=== PATIENT | female | born 1960 ===

== ENCOUNTER → 2020-12-24 | Outpatient (CLI) | payer BC ==
[2020-12-24 07:53] VITALS: BP 121/74; PULSE 68; RESP 16; TEMP 98.3
--- NOTE | 2020-12-24 08:48 | P.GSHP ---
History of Present Illness H&P Date: 12/24/20 Chief Complaint: invasive lobular cancer Kaylan is a 60 year old white female seen in consultation for DR. Roth regarding an invasive left breast lobular cancer. She had a left breast digital screening mammogram performed on . This revealed an asymmetric area of density at the retroareolar region measuring 1.6 cm. She subsequently underwent a diagnostic left breast mammogram on . This revealed persistent retroareolar density for which an ultrasound was recommended this was performed on the same date. This revealed a 1.7 cm irregular lesion in the retroareolar region at 2:00. She subsequently underwent an ultrasound-guided core biopsy which revealed an invasive lobular carcinoma. This was grade 2 ER/[place] positive and HER-2 negative. She felt anything in her breast. She gets mammograms on an annual basis. 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 Her treatment was in [facility]. She underwent chemotherapy and radiation therapy. She was placed on raloxifene for approximately 5 years. This was at the age of 37. She underwent a mastectomy with reconstruction via TRAM flap. The implant was placed on the left side for symmetry. She moved to [place] she followed with medical oncology, Dr. Bahena. She has not had any genetic testing done. Patient states she does not have any nipple discharge or skin changes. After the diagnosis she is able to feel the area of nodularity. It is not changed since she felt it. Caffeine: coffee and iced tea during the day Nicotine: 1/PPD chocolate: occasional Family History: mother: breast cancer at 85 Hormonal History: menarche: 12 M1, breast fed: yes, age at first : 22 menopause: 49 BCP: 5 years Surgical History: 1. Right mastectomy/axillary node dissection/reconstruction/symmetry procedure with the implant placed on the left side 2. attempted latismus dorsi flap which failed 3. right foot surgery 4. tonsil Medical History: anxiety/depression Social History: Smokin/2 PPD since 15smoke alcohol: none drugs: none - Constitutional Constitutional: Denies chills, Denies fever - EENT Comment: flashes and floaters both eyes Ears: deny: decreased hearing, tinnitus Ears, nose, mouth and throat: Denies headache, Denies sore throat - Breasts Breasts: bilateral: as per HPI - Cardiovascular Cardiovascular: Denies chest pain, Denies shortness of breath - Respiratory Comment: smoker - Gastrointestinal Gastrointestinal: Denies abdominal pain, Denies diarrhea, Denies nausea, Denies vomiting - Genitourinary (Female) Genitourinary: Denies dysuria, Denies hematuria - Menstruation Menstruation: Reports postmenopausal - Musculoskeletal Comment: back pain/scoliosis osteoarthritis - Integumentary Integumentary: Denies pruritus, Denies rash - Neurological Neurological: Denies numbness, Denies weakness - Psychiatric Psychiatric: Reports anxiety, Reports depression - Endocrine Endocrine: Denies fatigue, Denies weight change - Hematologic/Lymphatic Comment: none - Allergic/Immunologic Allergic/Immunologic: Reports seasonal allergies Past Medical History Past Medical History: Cancer Additional Past Medical History / Comment(s): hx. breast cancer-1997, had chemo & radiation History of Any Multi-Drug Resistant Organisms: None Reported Past Surgical History: Breast Surgery, Orthopedic Surgery, Tonsillectomy Additional Past Surgical History / Comment(s): right mastectomy & rec onstruction, foot surg. Past Anesthesia/Blood Transfusion Reactions: No Reported Reaction Past Alcohol Use History: None Reported Past Drug Use History: None Reported Medications and Allergies Home Medications Medication Instructions Recorded Confirmed Type PARoxetine [Paxil] 10 mg PO QAM 10/05/14 12/24/20 History [place]-3 Fatty Acids/Fish Oil [Fish 1 each PO QAM 12/24/20 12/24/20 History Oil 1,000 mg Softgel] Allergies Allergy/AdvReac Type Severity Reaction Status Date / Time No Known Allergies Allergy Verified 12/24/20 07:28 Surgical - Exam BMI 26.6 - General well developed, well nourished, no distress - Eyes normal ocular movement - ENT no hearing loss, no congestion - Neck no masses, trachea midline - Respiratory normal expansion, normal respiratory effort, clear to auscultation - Cardiovascular Rhythm: regular Heart Sounds: normal: S1, S2 - Abdomen Abdomen: soft, bowel sounds - Integumentary normal turgor - Neurologic no disoriented, no combative - Musculoskeletal normal gait - Psychiatric oriented to time, oriented to person, oriented to place, speech is normal, memory intact breast exam: BRA: 38C inspection: Asymmetry of the breast related to prior surgery, tram flap reconstruction of the right side, implant placement left side with removal of the nipple areolar complex and reimplantation. Palpation: Right breast: Tram flap reconstruction right chest wall no evidence of recurrent cancer Right axilla: No adenopathy of concern Left breast: Scars related to prior implant placement and repositioning of the nipple areolar complex, mass at 2 o'clock position extending from 12 to 2:00 approximately 2 cm in size Left axilla: No adenopathy of concern Results awaiting the actual radiographs from [facility], review of mammogram reports and ultrasound report Assessment and Plan Assessment: Impression: 1. Left breast invasive lobular carcinoma 2. Prior right mastectomy with TRAM flap reconstruction 23 years ago stage III disease 3. Anxiety/depression 4. Nicotine dependence 5. Back pain Plan: 1. Left breast needle localization lumpectomy, possible oculoplastic tissue transfer, sentinel node injection, sentinel node biopsy, possible axillary node dissection 2. Presentation of case at tumor board 3. Thoracic and lumbar spine x-rays Surgical options were discussed with the patient. The patient has a stage I A left breast invasive lobular carcinoma . Options include mastectomy plus or minus removal of implant, lumpectomy, sentinel node biopsy, possible axillary node dissection. She would like to have a lumpectomy performed if possible. We've also discussed genetic testing and at this time she is not interested. At this time the patient would like to have implant retained as possible. Additionally she is going to have the nipple areolar complex removed secondary to the proximity of the tumor to this, and is not going to have any reconstruction of this at this time. Cc: Dr. Roth Encounter 45 minutes time spent in physical examination, reviewing medical records, and counseling.
== END ==
LOC: WWCWWP 07:16
PROVIDERS: ATTEND Surgery
DX: C50.912 Malignant neoplasm of unspecified site of left female breast (principal); Z80.3 Family history of malignant neoplasm of breast; F32.9 Major depressive disorder, single episode, unspecified; F41.9 Anxiety disorder, unspecified; F17.210 Nicotine dependence, cigarettes, uncomplicated; M54.9 Dorsalgia, unspecified

== ENCOUNTER → 2020-12-24 | Outpatient (CLI) | payer BC ==
--- NOTE | 2020-12-24 09:26 | XR ---
EXAMINATION TYPE: XR thoracic spine complete DATE OF EXAM: 12/24/2020 COMPARISON: None HISTORY: Scoliosis back pain TECHNIQUE: 3 view thoracic spine FINDINGS: There are 12 thoracic type vertebral bodies. Pedicles are intact. There is a mild scoliosis present with convexity to the right. Vertebral body heights are preserved. Disc heights are preserve d. Sagittal plane alignment appears normal. IMPRESSION: 1. Mild thoracic scoliosis
--- NOTE | 2020-12-24 09:28 | XR ---
EXAMINATION TYPE: XR lumbar spine 2 or 3V DATE OF EXAM: 12/24/2020 COMPARISON: None HISTORY: Scoliosis, low back pain TECHNIQUE: 3 view lumbar spine FINDINGS: There is no scoliosis present within the lumbar spine. There are 5 lumbar-type vertebral humble dies. The pedicles appear intact as visualized. There is loss of disc height L5-S1 with some vacuum disc phenomenon. Posterior disc space narrowing i s present L4-5 disc space narrowing L1-2 and L2-3 may be present. Vertebral body heights are preserve d. IMPRESSION: 1. S shaped scoliosis to the lumbar spine. 2. Degenerative disc changes with loss of disc height discussed above
== END ==
LOC: RADXRMAIN 08:52
PROVIDERS: ATTEND Surgery
DX: M41.86 Other forms of scoliosis, lumbar region (principal); M51.36 Other intervertebral disc degeneration, lumbar region; M41.34 Thoracogenic scoliosis, thoracic region
CPT/HCPCS: 72072; 72100

== ENCOUNTER 2021-01-18 10:15 | Day surgery (SDC) | payer BC ==
[2021-01-13 15:47] VITALS: BMI 26.6
[~2021-01-18 10:15] MED LIST: DEXAMETHASONE SOD PHOSPHATE 4 MG/ML 1 ML VIAL IV ONE; HEPARIN SODIUM,PORCINE/PF 5,000 UNIT/0.5 ML SYRINGE SQ PRN; HYDROmorphone 0.5 MG/0.5 ML SYRINGE IVP PRN; LACTATED RINGERS 1,000 ML IV SCH; LIDOCAINE 1% (10MG/ML) FOR IV START INTRADERMA PRN; MIDAZOLAM 2 MG/2 ML VIAL IV PRN; ONDANSETRON 4 MG/2 ML VIAL IVP ONE; Pre Op ABX Message 1 EACH MISC MISCELLANE ONE
[2021-01-18] MEDS ORDERED: ALPRAZolam 0.25 MG TAB ONE (10:54)
[2021-01-18] MEDS ORDERED: ALPRAZolam 0.25 MG TAB PO ONE (10:56)
[2021-01-18 11:00] VITALS: RESP 16
[2021-01-18] MEDS ORDERED: LIDOCAINE 1% INJ 10MG/ML (20 ML MDV) SQ ONE (11:54)
--- NOTE | 2021-01-18 12:09 | P.NAPBC ---
NAPBC Queries - NAPBC Queries Was patient's case review presented at [facility] tumor board? If no, comment.: Yes Was patient's pathology reviewed at [facility]? If no, comment.: Yes Was breast conservation surgery offered? If no, comment.: Yes Was sentinel node biopsy offered? If no, comment.: Yes Was diagnosis confirmed by percutaneous core biopsy? If no, comment.: Yes Is patient mastectomy patient?: No Was a preop referral to reconstructive surgeon offered?: Yes Clinical Stage: Stage IA
--- NOTE | 2021-01-18 12:29 | NM ---
EXAMINATION TYPE: NM sentinel node injection DATE OF EXAM: 01/18/2021 COMPARISON: Mammogram 12/08/2020 HISTORY: 60-year-old female C50.512 MALIGNANT NEOPLASM OF UPPER-OUTER QUADRANT TECHNIQUE AND FINDINGS: The procedure of sentinel lymph node injection was explained to the patient. The benefits, alternatives, and risks were discussed. An informed consent was then obtained. Overlying skin is cleaned with sterile alcohol. Following this, 514 uCi Tc99m Tilmanocept was inject ed in the upper outer aspect of the left nipple intradermally. The patient tolerated the procedure well without any immediate complication. The patient was kept in the radiology department for short stay after the procedure and then taken to surgery for surgical p rocedure what is presumed intraoperative gamma probe will be used for sentinel lymph node detection. IMPRESSION: Successful left breast radiotracer injection for sentinel node localization as above.
[2021-01-18] MEDS ORDERED: ePHEDrine SULFATE/0.9% NACL/PF 50 MG/5 ML SYRINGE IV ONE (12:41)
[2021-01-18] MEDS ORDERED: SODIUM CHLORIDE 0.9% 100 ML BAG ONE (12:41)
[2021-01-18] MEDS ORDERED: ONDANSETRON 4 MG/2 ML VIAL ONE (12:41)
[2021-01-18] MEDS ORDERED: PROPOFOL 10 MG/ML 20 ML VIAL IV ONE (12:41)
[2021-01-18] MEDS ORDERED: SUCCINYLCHOLINE CHLORIDE 100 MG/5 ML SYR IV ONE (12:41)
[2021-01-18] MEDS ORDERED: MIDAZOLAM 2 MG/2 ML VIAL ONE (12:41)
[2021-01-18] MEDS ORDERED: fentaNYL (PF) 50 MCG/ML 2 ML AMP ONE (12:41)
[2021-01-18] MEDS ORDERED: WATER FOR INJECTION, STERILE 10 ML VIAL IV ONE (12:41)
[2021-01-18] MEDS ORDERED: ceFAZolin 1,000 MG VIAL ONE (12:41)
[2021-01-18] MEDS ORDERED: LIDOCAINE 1% INJ 10MG/ML (20 ML MDV) ONE (12:41)
[2021-01-18] MEDS ORDERED: SODIUM CHLORIDE 0.9% 50 ML with ceFAZolin 2,000 MG IV ONE ×2 (12:44)
[2021-01-18] MEDS ORDERED: LACTATED RINGERS 1,000 ML IV ONE (14:24)
--- NOTE | 2021-01-18 14:50 | P.OP ---
Date of Procedure: 01/18/21 Preoperative Diagnosis: Left breast invasive lobular carcinoma Postoperative Diagnosis: Same Procedure(s) Performed: [place] node biopsy, central lumpectomy after needle localization Anesthesia: VANIA Surgeon: Roseann Byrd Estimated Blood Loss (ml): 10 IV fluids (ml): 600 Pathology: other ([place] node, left breast tissue) Condition: stable Disposition: same day Indications for Procedure: Left breast invasive lobular carcinoma Operative Findings: Dense breast tissue Description of Procedure: Kaylan is a 60-year-old white female who was diagnosed with a left breast invasive lobular carcinoma posterior to the nipple areolar complex. She had a prior right breast cancer and has had a left breast subpectoral implant to augment her left breast and make it more symmetrical to the right side. The right side was reconstructed with a TRAM flap. The patient declined genetic testing at this time. She wished a lumpectomy she understood that a central lumpectomy would be performed with removal of the nipple areolar complex. The patient was seen in the radiology department. Needle localization was performed, and radioactive substance was injected for sentinel node biopsy. She was brought to the operative suite and following induction of anesthesia the axilla was interrogated using the neoprobe. Radioactivity was identified. The left breast and axilla were then prepped and draped in a sterile fashion. An incision was made in the axilla over the area of greatest radioactivity. Dissection was carried into the deep tissues and a radioactive lymph node was identified. This was removed using the Harmonic scalpel. The 10 second count was 2665. The background count was at 10 seconds was 16. No other radioactive lymph nodes were identified. No other palpable nodes were identified. The axillary area was well irrigated. The deep tissues were closed using 3-0 Vicryl suture. The skin was closed using 4-0 Monocryl. Steristrips were placed. The area of the breast was approached. Circumareolar incision was performed with excision of the skin and aeorolar tissue, the wire as followed down to the area of concern. Posteriorly dissection was performed close to the area of the subpectoral implant. Anteriorly the skin and nipple areolar complex were removed. Superior and inferior no palpable lesion was identified and likewise no palpable lesion was identified medial or lateral. The specimen was removed. It was painted for orientation. Radiograph was performed and the area of concern was present in the specimen. The deep tissues were closed using 3-0 Vicryl suture. The subcutaneous tissue was closed using 3-0 Vicryl suture. The skin was closed using 4-0 Monocryl. This was followed by 4-0 nylon suture. Patient tolerated the procedure in stable condition. All instrument and sponge counts were correct at the end of the case.
--- NOTE | 2021-01-18 14:52 | P.DS ---
Providers Attending physician: Roseann Byrd Primary care physician: Michelle Roth Plan - Discharge Summary Discharge Rx Participant: No New Discharge Prescriptions: No Action PARoxetine [Paxil] 10 mg PO HS [place]-3 Fatty Acids/Fish Oil [Fish Oil 1,000 mg Softgel] 1 each PO QAM Ibuprofen [Motrin] 800 mg PO Q8H PRN PRN Reason: Pain Discharge Medication List PARoxetine [Paxil] 10 mg PO HS 10/05/14 [History] [place]-3 Fatty Acids/Fish Oil [Fish Oil 1,000 mg Softgel] 1 each PO QAM 12/24/20 [History] Ibuprofen [Motrin] 800 mg PO Q8H PRN 01/13/21 [History] Follow up Appointment(s)/Referral(s): Roseann Byrd MD [STAFF PHYSICIAN] - 1 Week Activity/Diet/Wound Care/Special Instructions: do not drive for 24 hours after d/c or if taking narcotic pain medication may shower after 48 hours wear bra at all times Discharge Disposition: HOME SELF-CARE
[2021-01-18 15:06] VITALS: TEMP 96.9
[2021-01-18] MEDS ORDERED: KETOROLAC 15 MG/ML 1 ML VIAL IVP ONE (15:15)
[2021-01-18 16:00] VITALS: PULSE 68
[2021-01-18 16:24] VITALS: BP 148/74
--- NOTE | 2021-01-18 16:38 | MM ---
EXAMINATION TYPE: MG pre op needle loc LT, MG surgical specimen LT DATE OF EXAM: 01/18/2021 COMPARISON: 12/08/2020 CLINICAL HISTORY: 60-year-old female C5 0.512. Biopsy-proven left breast cancer. Referred for needle localization. TECHNIQUE: Needle localization with wire placement and surgical excision of area of concern in the anterior subareolar left breast. FINDINGS: The procedure of needle localization with wire placement and than surgical excision was explained to the patient. Benefits, alternatives, and risks were discussed. An informed consent was then obtained. The shortest pathway for procedure was chosen. Shortest pathway was a superior approach. The overlying skin was prepped and draped in usual sterile fashion. Lidocaine was used as anesthetic into the skin and subcutaneous tissue up to the level of area of concern. A 7 cm needle was used. It was placed via a superior approach under mammographic guidance. Subsequent 90 degrees mammogram show the needle to be in satisfactory position relative to the targeted area. At this point, wire was placed and the needle was withdrawn. The wire was fixed to patient's skin. Images were marked for surgeon. The patient tolerated the procedure well without any immediate complication. The patient was kept in the radiology department for short stay after the procedure and then taken to surgery for surgical excision. Targeted clip and associated focal asymmetry and wire are identified in specimen mammogram. The patient was kept in hospital for short stay after the procedure and then discharged home in stable condition. IMPRESSION: Successful, uncomplicated needle localization with wire placement and surgical excision of biopsy-proven left breast cancer. Full pathology results to follow. Pathology Results: Malignant A. AXILLARY CONTENTS, LEFT: Single lymph node negative for metastasis. CK7 and PHILIPP immunoperoxidase stains are confirmatory (controls appropriate). B. SENTINEL LYMPH NODE, LEFT: Two lymph nodes, one node positive for micrometastasis and one node positive for isolated tumor cells. CK7 and PHILIPP immunoperoxidase stains are confirmatory (controls appropriate). See Surgical Pathology Cancer Case Summary. C. LEFT BREAST, LUMPECTOMY: Invasive lobular carcinoma involving the medial and cauterized uninked margins multifocally. See Surgical Pathology Cancer Case Summary and Comment. Recommendation Surgical consult of the left breast. Appropriate surgical/oncologic management for any positive margins. MTDD
== END 2021-01-18 16:42 | disposition home or self-care (01) ==
LOC: OR 10:15
PROVIDERS: ATTEND Surgery
DX: C50.912 Malignant neoplasm of unspecified site of left female breast (principal); C77.3 Secondary and unspecified malignant neoplasm of axilla and upper limb lymph nodes; Z17.0 Estrogen receptor positive status [ER+]; Z85.3 Personal history of malignant neoplasm of breast; Z80.3 Family history of malignant neoplasm of breast; F17.210 Nicotine dependence, cigarettes, uncomplicated; F41.9 Anxiety disorder, unspecified; F32.9 Major depressive disorder, single episode, unspecified; M19.90 Unspecified osteoarthritis, unspecified site; Z79.899 Other long term (current) drug therapy
CPT/HCPCS: 19301; 38525; 88342; 88307; 88341; 76098; 19281; 38792; A9520; J2250; J1100; J2405; J0690; J2001; J3010; J1885; J0330; J2704; J1790; J1644

== ENCOUNTER → 2021-01-27 | Outpatient (CLI) | payer BC ==
[2021-01-27 12:09] VITALS: BP 147/88; PULSE 74; RESP 18; TEMP 98.1
--- NOTE | 2021-01-27 12:43 | P.PN ---
Progress Note - Text Progress Note Date: 01/27/21 Kaylan is a 60-year-old white female status post left breast central lumpectomy and sentinel node biopsy [place] [id number]. This was for an invasive lobular carcinoma. Pathology revealed the lesion to be 2.2 cm in size. The medial margin was positive. Additionally 2 lymph nodes revealed disease 1 be micrometastatic and when showing isolated tumor cells. The patient post procedure is doing well. Secondary to the positive margin is necessary for have at least reexcision of the medial margin. After discussion she wishes a mastectomy to be performed with reconstruction to be done at the same time. She has had a left breast subpectoral implant in the past and there is question as to whether this should be replaced. The patient will also have an axillary node dissection she understands this. Risks and benefits the procedure were discussed with the patient. Risks include but are not limited to bleeding, infection, reaction to the anesthetic. Additionally she understands that the reconstruction will ultimately be up to the plastic surgeon she is going to see a plastic surgeon prior to the procedure. We made over not remove the implant at the time of surgery but this will be after discussion with plastic surgery. Physial Exam: lungs: clear heart: RRR incision: clean and dry Plan: 1. left breast mastectomy and axillary node dissection 2. Possible removal of implant left side and replacement as per plastic surgery appointment with plastic surgery CC: DR. Roth
== END | disposition home or self-care (01) ==
LOC: WWCWWP 11:49
PROVIDERS: ATTEND Surgery
DX: C50.912 Malignant neoplasm of unspecified site of left female breast (principal)

== ENCOUNTER → 2021-02-03 | Outpatient (CLI) | payer BC ==
[2021-02-03 07:46] VITALS: BP 110/63; PULSE 64; RESP 16; TEMP 98.1
--- NOTE | 2021-02-03 08:05 | P.PN ---
Progress Note - Text Progress Note Date: 02/03/21 Kaylan is a 60-year-old white female status post left breast central lumpectomy and sentinel node biopsy and [id number]. This was for an invasive lobular carcinoma. Pathology revealed the lesion to be 2.2 cm in size. The medial margin was positive. Additionally 2 lymph nodes revealed disease 1 be micrometastatic and when showing isolated tumor cells. The patient post procedure is doing well. Secondary to the positive margin is necessary for have at least reexcision of the medial margin. After discussion she wishes a mastectomy to be performed with reconstruction to be done at the same time. She has had a left breast subpectoral implant in the past and there is question as to whether this should be replaced. The patient will also have an axillary node dissection she understands this. Risks and benefits the procedure were discussed with the patient. Risks include but are not limited to bleeding, infection, reaction to the anesthetic. Additionally she understands that the reconstruction will ultimately be up to the plastic surgeon she is going to see a plastic surgeon prior to the procedure. We may or may not remove the implant at the time of surgery but this will be after discussion with plastic surgery. Kaylan has seen Dr. Villavicencio from plastic surgery. He has discussed with her reconstruction options. This may or may not include an v groove cutter placement versus immediate implant placement. She understands this and wishes to proceed with the surgery. Physial Exam: lungs: clear heart: RRR incision: clean and dry; sutures removed and Steri-Strips applied Plan: 1. left breast mastectomy and axillary node dissection 2. Possible removal of implant left side and replacement as per plastic surgery CC: DR. Roth
== END ==
LOC: WWCWWP 07:29
PROVIDERS: ATTEND Surgery
DX: Z48.02 Encounter for removal of sutures (principal)

== ENCOUNTER 2021-02-08 06:53 | Observation (INO) | payer BC ==
[2021-02-04 14:37] VITALS: BMI 26.6
--- NOTE | 2021-02-04 17:19 | P.PN ---
Subjective Progress Note Date: 02/04/21 Principal diagnosis: Positive margin left breast lumpectomy Kaylan is a 60 year old white female who was seen in consultation for DR. Roth regarding an invasive left breast lobular cancer. She had a left breast digital screening mammogram performed on . This revealed an asymmetric area of density at the retroareolar region measuring 1.6 cm. She subsequently underwent a diagnostic left breast mammogram on . This revealed persistent retroareolar density for which an ultrasound was recommended this was performed on the same date. This revealed a 1.7 cm irregular lesion in the retroareolar region at 2:00. She subsequently underwent an ultrasound-guided core biopsy which revealed an invasive lobular carcinoma. This was grade 2 ER/N[place] positive and HER-2 negative. She gets mammograms on an annual basis. 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 Her treatment was in [place], [place]. She underwent chemotherapy and radiation therapy. She was placed on raloxifene for approximately 5 years. This was at the age of 37. She underwent a mastectomy with reconstruction via TRAM flap. The implant was placed on the left side for symmetry. She moved to [place] she followed with medical oncology, Dr. Bahena. She has not had any genetic testing done. Patient states she does not have any nipple discharge or skin changes. After the diagnosis she is able to feel the area of nodularity. It is not changed since she felt it. She underwent a lumpectomy and sentinel node biopsy on . Pathology revealed positive medial margin. Additionally 2 lymph nodes were removed one positive for micrometastatic 1 no positive for isolated tumor cells. After discussion she wished to have a mastectomy with reconstruction. She understands the secondary to the positive axillary nodes I would also do a lower level axillary node dissection. She saw Dr. Villavicencio, who is going to be available for reconstruction. She was uncertain as to whether that would be an concrete plant laborer or a implant placement at the time of surgery. Reconstruction will be determined by Dr. Villavicencio. Caffeine: coffee and iced tea during the day Nicotine: 1/PPD chocolate: occasional Family History: mother: breast cancer at 85 Hormonal History: menarche: 12 M1, breast fed: yes, age at first : 22 menopause: 49 BCP: 5 years Surgical History: 1. Right mastectomy/axillary node dissection/reconstruction/symmetry procedure with the implant placed on the left side 2. attempted latismus dorsi flap which failed 3. right foot surgery 4. tonsil Medical History: anxiety/depression Social History: Smokin/2 PPD since 15smoke alcohol: none drugs: none - Constitutional Constitutional: Denies chills, Denies fever - EENT Comment: flashes and floaters both eyes Ears: deny: decreased hearing, tinnitus Ears, nose, mouth and throat: Denies headache, Denies sore throat - Breasts Breasts: bilateral: as per HPI - Cardiovascular Cardiovascular: Denies chest pain, Denies shortness of breath - Respiratory Comment: smoker - Gastrointestinal Gastrointestinal: Denies abdominal pain, Denies diarrhea, Denies nausea, Denies vomiting - Genitourinary (Female) Genitourinary: Denies dysuria, Denies hematuria - Menstruation Menstruation: Reports postmenopausal - Musculoskeletal Comment: back pain/scoliosis osteoarthritis - Integumentary Integumentary: Denies pruritus, Denies rash - Neurological Neurological: Denies numbness, Denies weakness - Psychiatric Psychiatric: Reports anxiety, Reports depression - Endocrine Endocrine: Denies fatigue, Denies weight change - Hematologic/Lymphatic Objective - Vital Signs Vital signs: Intake & Output 02/03/21 02/04/21 02/04/21 18:59 06:59 18:59 Weight 81.647 kg - Exam BMI 26.6 - Constitutional General appearance: Present: average body habitus - EENT Eyes: Present: EOMI ENT: Present: hearing grossly normal - Neck Neck: Present: normal ROM - Respiratory Respiratory: bilateral: CTA - Cardiovascular Rhythm: regular Heart sounds: normal: S1, S2 - Gastrointestinal General gastrointestinal: Present: soft - Integumentary Integumentary: Present: normal turgor - Musculoskeletal Musculoskeletal: Present: gait normal - Psychiatric Psychiatric: Present: A&O x's 3, appropriate affect, intact judgment & insight - Additional findings Additional findings: Breast examination: Block: 30 8C Inspection: Asymmetry of the breast related to prior surgery, drain flap reconstruction of the right side, implant placement left side status post central lumpectomy Palpation: Right breast: Trans-flap reconstruction right chest wall no evidence of recurrent cancer Right axilla: No adenopathy of concern Left breast: Well-healed scar related to recent central lumpectomy Left axilla: Well-healed scar Assessment and Plan Assessment: Impression: 1. Patient status post right mastectomy reconstruction via TRAM flap approximately 23 years ago for stage III breast cancer 2. Left breast invasive lobular carcinoma status post lumpectomy with positive margins and positive sentinel node 3. Anxiety/depression 4. Nicotine dependence 5. Back pain Plan: 1. Left breast mastectomy, axillary node dissection, possible implant removal, reconstruction as per plastic surgery CC: Dr. Roth
[~2021-02-08 06:53] MED LIST changes: -HYDROmorphone 0.5 MG/0.5 ML SYRINGE IVP PRN; -LIDOCAINE 1% (10MG/ML) FOR IV START INTRADERMA PRN; +SCOPOLAMINE 1.5MG/72HR PATCH TRANSDERM ONE
[2021-02-08] MEDS ORDERED: LACTATED RINGERS 1,000 ML IV ONE (07:29)
[2021-02-08] MEDS ORDERED: LIDOCAINE 1% INJ 10MG/ML (20 ML MDV) ONE (08:33)
[2021-02-08] MEDS ORDERED: GLYCOPYRROLATE 0.2 MG/ML 2 ML VIAL ONE (08:33)
[2021-02-08] MEDS ORDERED: PROPOFOL 10 MG/ML 20 ML VIAL IV ONE (08:33)
[2021-02-08] MEDS ORDERED: fentaNYL (PF) 50 MCG/ML 2 ML AMP ONE (08:33)
[2021-02-08] MEDS ORDERED: MIDAZOLAM 2 MG/2 ML VIAL ONE (08:33)
[2021-02-08] MEDS ORDERED: SUCCINYLCHOLINE CHLORIDE 100 MG/5 ML SYR IV ONE (08:33)
[2021-02-08] MEDS ORDERED: ceFAZolin 1,000 MG VIAL IVPB ONE (08:55)
[2021-02-08] MEDS ORDERED: NALOXONE 0.4 MG/ML 1 ML VIAL IV PRN (10:17)
[2021-02-08] MEDS ORDERED: ONDANSETRON 4 MG/2 ML VIAL IVP PRN (10:17)
--- NOTE | 2021-02-08 10:17 | P.OP ---
Date of Procedure: 02/08/21 Preoperative Diagnosis: Positive margin and invasive lobular carcinoma left breast Postoperative Diagnosis: Same Procedure(s) Performed: Left mastectomy, completion left lower level axillary node dissection Anesthesia: VANIA Surgeon: Roseann Byrd Estimated Blood Loss (ml): 10 IV fluids (ml): 400 Pathology: other (Breast tissue, axillary tissue) Condition: stable Disposition: floor Indications for Procedure: Positive margin invasive lobular carcinoma left breast Operative Findings: Postop changes left breast and axilla Description of Procedure: Patient is a 60-year-old white female status post left breast lumpectomy and sentinel node biopsy for invasive lobular carcinoma. She was noted to have a margin which was positive and the patient opted for a mastectomy. Patient was taken to the operating room and following induction of anesthesia the left breast and axilla were prepped and draped in a sterile fashion. Mastectomy was performed through the prior incision. Superior and inferior skin flaps were developed. These were carried down to the muscle of the pectoralis major. This was performed using an electrocautery device. The tissue was removed from the muscle of pectoralis major. The implant was under the pectoralis muscle and intact. After we were assured that hemostasis was attained the area of the axilla was approached. The axillary contents were able to be approached from the same incision. The patient was not paralyzed. The area of the pectoralis minor was identified. This was followed superiorly to the area of the axillary vein. Tissues were swept inferiorly identifying the thoracodorsal and long thoracic nerve areas. It was necessary to take several intercostal brachial nerves. There was inflammation in the axilla related to prior sentinel node dissection. Several vessels were ligated using Vicryl suture. This tissue was carefully dissected free. After the axillary tissue was removed no palpable residual enlarged nodes were identified. The area was carefully irrigated. After hemostasis was noted to be obtained this portion of the procedure was terminated. At this time Dr. Villavicencio plastic surgery came in to finish the reconstruction.
[2021-02-08] MEDS: HYDROmorphone 0.5 MG/0.5 ML SYRINGE IVP PRN ×3 (11:30→11:40)
[2021-02-08] MEDS: DEXTROSE 5%-0.45% NACL 1,000 ML IV SCH ×2 (12:38→21:25)
[2021-02-08] MEDS: traMADol 50 MG TAB PO PRN (12:58)
[2021-02-08] MEDS: HYDROmorphone 1 MG/ML 1 ML SYRINGE IVP PRN ×3 (15:19→21:24)
[2021-02-08] MEDS: HEPARIN SODIUM,PORCINE/PF 5,000 UNIT/0.5 ML SYRINGE SQ SCH (15:35)
--- NOTE | 2021-02-08 20:11 | OP ---
OPERATIVE REPORT DATE OF SURGERY: 02/08/2021. SURGEON: Chase Underwood M.D. PREOPERATIVE DIAGNOSES: 1. Invasive lobular carcinoma, left breast. 2. Acquired absence, left breast. POSTOPERATIVE DIAGNOSES: 1. Invasive lobular carcinoma, left breast. 2. Acquired absence, left breast. OPERATIVE PROCEDURES: 1. Immediate reconstruction, left breast, following mastectomy with insertion of tissue shake backboard notcher and subsequent outpatient expansion. 2. Implantation of reconstructive graft for left breast reconstruction. OPERATIVE INDICATIONS: The patient is a 60-year-old female with a past history of invasive ductal carcinoma of the right breast that was treated many years ago, including mastectomy, initially failed reconstruction, radiation treatment, chemo, and then delayed reconstruction with TRAM flap. The patient underwent augmentation of the left breast to obtain optimal symmetry and did well for years. Unfortunately, she was found to have a new lesion that was cancerous involving the left breast. The area was excised and significant for invasive lobular carcinoma. She was referred to my office for breast reconstruction consultation and she plans to undergo mastectomy but desires to proceed with breast reconstruction. Several options were presented. The patient desires to proceed with immediate implant placement if possible, although she understands this is highly unlikely and that most likely an shake backboard notcher will be required with staged expansion, then replacement of the shake backboard notcher with an implant on a future date. The patient understands her potential risks and complications of the procedures and that outcome guarantees cannot be made. She has requested I perform the surgery. OPERATIVE PROCEDURE SUMMARY: The patient was seen in the presurgical area, markings made, procedure reviewed, all questions answered. She was transported to the operating room, where she was placed in supine position. Following induction of general tracheal anesthesia, Dr. Byrd and her surgical team proceeded with the left mastectomy and left axillary lymph node dissection. Once those procedures were completed, I entered the operating room. Patient was under general endotracheal anesthesia in supine position. All sponge and needle counts from the prior procedure were correct. There was no active bleeding. Mastectomy site irrigation was performed. The implant was underneath the pectoralis major muscle incision made through the pectoralis major muscle in the direction of its fibers with cauterization exposing the implant. A textured saline implant measuring 330 mL was removed. The implant appeared intact. The cavity was irrigated. There was a small amount of fibrinopurulent exudate, but no granulation tissue and no fluid present. A complete capsulotomy incision was made where the capsule joined the chest wall, then multiple cruciate incisions through the implant capsule that was present, creating more space medially, inferiorly and superiorly. Once this was completed, irrigation was performed and hemostasis maintained with cautery. Excellent hemostasis was obtained. The cavity was measured. It was not possible to proceed with direct placement of an implant due to the size and tissue coverage that was present. Therefore tissue shake backboard notcher was opened on the field. The tissue shake backboard notcher was from the [employer], reference #133 [id number] measuring 650 mL. The serial number was [id number]. The device was only handled by the surgeon. All air was extracted from the device. Initially 50 mL of 0.9 normal saline was instilled into the device. It was inserted in the reconstructive cavity. Orientation was assured under direct vision. Then suturing tabs were secured medially, inferiorly and laterally through the suture tabs on the shake backboard notcher, securing to chest wall tissue using interrupted 3-0 Vicryl sutures. With this completed, additional fluid was added to the shake backboard notcher, making the initial volume 300 mL. The muscle flap tissue could not be approximated over the shake backboard notcher, which was expected to be the case. Therefore SurgiMend reconstructive graft was opened on the field measuring 10 x 15 cm. The graft was meshed. The graft was placed in room- temperature saline until ready. Once ready, the graft was pre-stretched, inserted in the reconstructive cavity in modified sling orientation and secured to the muscle flap tissue using short running 3-0 Vicryl suture. Complete coverage of the shake backboard notcher was now obtained. An additional 100 mL was placed in the shake backboard notcher, making the final volume [address] slight tension on the graft material. 19 round Boni channel drains were opened on the field, one placed in the left axillary node dissection base and then the other underneath the mastectomy skin flaps, both brought out through separate stab incisions in the left anterolateral chest wall and sutured in place with 2-0 Prolene. The drains were cut to appropriate length. The mastectomy incision was closed, reducing the medial lateral dog ears by using the semicircular pursestring technique with 3-0 Monocryl and then completing the central closure of the mastectomy incision by approximating deep dermis using inverted interrupted 3-0 and 4-0 Monocryl and then complete superficial dermis to epidermis closure with gurvinder. Drains were connected to closed bulb suction and patent. Surgical field was cleansed with saline and dried. Postoperative bandages were placed using 4x4s, Kerlix, ABD pads, secured with 3M Medipore tape, and then positioning the extra-large mammary support. The patient was then awakened from her anesthetic, extubated and transferred to the recovery room in good condition with stable vital signs. Estimated blood loss for this portion of the procedure was 25 mL. The final fill in the left-sided tissue shake backboard notcher was 400 mL. There were no complications. MMODL / IJN: [id number] /
[2021-02-09] MEDS: HYDROmorphone 1 MG/ML 1 ML SYRINGE IVP PRN ×3 (00:25→08:02)
[2021-02-09] MEDS: HEPARIN SODIUM,PORCINE/PF 5,000 UNIT/0.5 ML SYRINGE SQ SCH ×2 (00:26→07:50)
[2021-02-09 00:46] VITALS: RESP 16
[2021-02-09] MEDS: traMADol 50 MG TAB PO PRN (03:36)
[2021-02-09] MEDS: DEXTROSE 5%-0.45% NACL 1,000 ML IV SCH (03:36)
[2021-02-09 07:33] LABS: Basophils % (A) 0 %; Eosinophils # (A) 0.1 k/uL (0-0.7); Eosinophils % (A) 1 %; HCT 35.6 % (34.0-46.0); HGB 11.8 gm/dL (11.4-16.0); Lymphocytes # (A) 2.2 k/uL (1.0-4.8); Lymphocytes % (A) 25 %; MCH 29.8 pg (25.0-35.0); MCHC 33.3 g/dL (31.0-37.0); MCV 89.5 fL (80.0-100.0); Mean Platelet Volume 7.8; Monocytes # (A) 0.6 k/uL (0-1.0); Monocytes % (A) 7 %; Neutrophils % (A) 67 %; Platelet Count 257 k/uL (150-450); RBC 3.97 m/uL (3.80-5.40); RDW 13.1 % (11.5-15.5)
[2021-02-09 07:50] VITALS: BP 125/70; PULSE 60; TEMP 98.2
--- NOTE | 2021-02-09 10:12 | P.PN ---
Subjective Progress Note Date: 02/09/21 Principal diagnosis: Positive margin left breast lumpectomy/postop day #1 mastectomy axillary node dissection, subpectoral implant placement Kaylan is a 60 year old white female who was seen in consultation for DR. Roth regarding an invasive left breast lobular cancer. She had a left breast digital screening mammogram performed on . This revealed an asymmetric area of density at the retroareolar region measuring 1.6 cm. She subsequently underwent a diagnostic left breast mammogram on . This revealed persistent retroareolar density for which an ultrasound was recommended this was performed on the same date. This revealed a 1.7 cm irregular lesion in the retroareolar region at 2:00. She subsequently underwent an ultrasound-guided core biopsy which revealed an invasive lobular carcinoma. This was grade 2 ER/MI positive and HER-2 negative. She gets mammograms on an annual basis. 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 Her treatment was in [place], [place]. She underwent chemotherapy and radiation therapy. She was placed on raloxifene for approximately 5 years. This was at the age of 37. She underwent a mastectomy with reconstruction via TRAM flap. The implant was placed on the left side for symmetry. She moved to [place] she followed with medical oncology, Dr. Bahena. She has not had any genetic testing done. Patient states she does not have any nipple discharge or skin changes. After the diagnosis she is able to feel the area of nodularity. It is not changed since she felt it. She underwent a lumpectomy and sentinel node biopsy on . Pathology revealed positive medial margin. Additionally 2 lymph nodes were removed one positive for micrometastatic 1 no positive for isolated tumor cells. After discussion she wished to have a mastectomy with reconstruction. She understands the secondary to the positive axillary nodes I would also do a lower level axillary node dissection. She saw Dr. Villavicencio, who is going to be available for reconstruction. She was uncertain as to whether that would be an mud tank operator or a implant placement at the time of surgery. Reconstruction will be determined by Dr. Villavicencio. She is postop day #1 from left breast mastectomy and lower level axillary node resection, implant removal by Dr. Villavicencio with placement of an mud tank operator. She is doing well on postop day 1. She is tolerating diet without difficulty. Objective - Vital Signs Vital signs: Vital Signs Temp 98.2 F 02/09/21 07:49 Pulse 60 02/09/21 07:49 Resp 16 02/09/21 07:49 BP 125/70 02/09/21 07:49 Pulse Ox 98 02/09/21 07:49 Intake & Output 02/08/21 02/09/21 02/09/21 18:59 06:59 18:59 Intake Total 1070 1250 Output Total 567 475 Balance 503 775 Weight 85.1 kg Intake: IV 750 Intake, IV Titration 1250 Amount Dextrose 5%-0.45% NaCl 1, 1200 000 ml @ 120 mls/hr IV . Q8H20M YEVGENIY Rx#:[id number] ceFAZolin 1,000 mg In 50 Sodium Chloride 0.9% 50 ml @ 100 mls/hr IVPB Q8H YEVGENIY Rx#:[id number] Oral 320 Output: Drainage 32 25 #! 22 15 #2 10 10 Urine 500 450 Estimated Blood Loss 35 Other: Voiding Method Toilet Toilet # Voids 4 1 - Constitutional General appearance: Present: cooperative - EENT Eyes: Present: EOMI ENT: Present: hearing grossly normal - Neck Neck: Present: normal ROM - Respiratory Respiratory: bilateral: CTA - Cardiovascular Rhythm: regular Heart sounds: normal: S1, S2 - Integumentary Integumentary Comment(s): There is a rash over the left mastectomy site which appears to be consistent with the area of the Telfa, there is no evidence of infection Incision clean and dry ALOK drain #1 15 mL serous ALOK drain #2 10 mL serous - Psychiatric Psychiatric: Present: A&O x's 3 - Labs CBC & Chem 7: 02/09/21 05:49 Assessment and Plan Assessment: Impression: 1. Patient status post right mastectomy reconstruction via TRAM flap approximately 23 years ago for stage III breast cancer 2. Left breast invasive lobular carcinoma status post lumpectomy with positive margins and positive sentinel node/postop day #1 left breast mastectomy, low axillary node dissection, and removal of prior implant and placement of mud tank operator 3. Anxiety/depression 4. Nicotine dependence 5. Back pain Plan: 1. Patient doing well postop day #1 plan discharge home CC: Dr. Roth
--- NOTE | 2021-02-09 10:16 | P.DS ---
Providers Date of admission: 02/08/21 23:20 Expected date of discharge: 02/09/21 Attending physician: Roseann Byrd Primary care physician: Michelle Roth [facility] Course: Kaylan is a 60-year-old white female who underwent a mastectomy, low axillary node dissection, removal of implant, and placement of university counselor yesterday. She is doing well on her first postoperative day. She is ready for discharge. Plan - Discharge Summary Discharge Rx Participant: No New Discharge Prescriptions: No Action PARoxetine [Paxil] 10 mg PO HS Ascorbic Acid [Vitamin C] 1,000 mg PO DAILY Discharge Medication List PARoxetine [Paxil] 10 mg PO HS 10/05/14 [History] Ascorbic Acid [Vitamin C] 1,000 mg PO DAILY 02/04/21 [History] Follow up Appointment(s)/Referral(s): Roseann Byrd MD [STAFF PHYSICIAN] - 1 Week Chase Underwood MD [STAFF PHYSICIAN] - 1 Week Patient Instructions/Handouts: *Surgery [facility] - Scopalamine Patch Instructions Activity/Diet/Wound Care/Special Instructions: Do not drive if taking narcotic pain medications May shower after 48 hours wear bra at all times teach patient drain care, drain and record output daily and as needed Discharge Disposition: HOME SELF-CARE
== END 2021-02-09 11:15 | disposition home or self-care (01) ==
LOC: OR 06:53 → 6PED 11:13 → OR 23:20 → 6PED 23:20
PROVIDERS: ADMIT Surgery; ATTEND Surgery
DX: C50.912 Malignant neoplasm of unspecified site of left female breast (principal); Z17.0 Estrogen receptor positive status [ER+]; F32.9 Major depressive disorder, single episode, unspecified; F41.9 Anxiety disorder, unspecified; F17.210 Nicotine dependence, cigarettes, uncomplicated; Z20.822 Contact with and (suspected) exposure to COVID-19; M19.90 Unspecified osteoarthritis, unspecified site; Z79.899 Other long term (current) drug therapy; Z98.890 Other specified postprocedural states; Z80.3 Family history of malignant neoplasm of breast
CPT/HCPCS: 19307; 19357; 85025; 88342; 88307; 88341; 87635; G0378 ×2; C1889; C1763; J2250; J1100; J2405; J0690 ×2; J2001; J3010; J1170 ×3; J0330; J2704; J1644 ×2

== ENCOUNTER → 2021-02-17 | Outpatient (CLI) | payer BC ==
[2021-02-17 16:28] VITALS: BP 131/66; PULSE 89; RESP 16; TEMP 98.9
--- NOTE | 2021-02-17 16:40 | P.PN ---
Progress Note - Text Progress Note Date: 02/17/21 Kaylan is a 60-year-old white female status post left breast mastectomy and additional lymph node resection on 5420. On mastectomy she was noted to have multifocal invasive lobular carcinoma, margins were negative for cancer. She had a subpectoral implant placed. She saw Dr. Villavicencio on 02-14-21 was noted to have some erythema of the left breast. She was started on Keflex with resolution of the erythema. She is not complaining of any fever or chills. Kaitlin were left in place. She had a total of 5 lymph nodes removed 2 nodes were positive for isolated tumor cells, and one node was positive for micrometastatic disease. Patient did have a rash over her back and upper chest which was present prior to starting the Keflex. She is going to use Benadryl with respect to this. Physical exam: Incision clean and dry resolution of erythema over her left breast; macupapluar rash over the upper chest and back; decreased since surgery Kaitlin in place Lungs: Clear Heart: Regular rate and rhythm Impression/Plan 1. Patient status post left breast mastectomy 2.2 cm invasive lobular carcinoma, margins negative 2. 5 lymph nodes removed 2 with isolated tumor cells along with micrometastatic disease 3. Repeat patient case at tumor board 4. Lesion is ER/AL positive Her 2- will follow with medical oncology, Oncotype test pending 5. Appointment with radiation oncology 6. Follow up here in 2 weeks 7. Follow-up with Dr. Villavicencio 8. benadryl over the counter
== END ==
LOC: WWCWWP 15:43
PROVIDERS: ATTEND Surgery
DX: C50.912 Malignant neoplasm of unspecified site of left female breast (principal); Z90.12 Acquired absence of left breast and nipple; Z17.0 Estrogen receptor positive status [ER+]; C79.9 Secondary malignant neoplasm of unspecified site; Z98.890 Other specified postprocedural states

== ENCOUNTER → 2021-03-03 | Outpatient (CLI) | payer BC ==
[2021-03-03 09:40] VITALS: BP 139/88; PULSE 68; RESP 18; TEMP 98.4
--- NOTE | 2021-03-03 10:06 | P.PN ---
Subjective Progress Note Date: 03/03/21 Principal diagnosis: Multifocal invasive lobular carcinoma, 5 nodes removed form with micrometastatic disease to with isolated tumor cells Patient is a 60-year-old white female status post left breast mastectomy and axillary node removal. She was noted to have a 2.2 cm multifocal invasive lobular carcinoma as well as 3 nodes involved with tumor cells to isolated tumor cells and one was micrometastatic deposit. She has been seen by radiation oncology it is not felt that she needs further surgery of the lymph nodes and she is going to have radiation of the axilla and chest wall. Additionally she had an Oncotype performed the score was 23. With a score of 23 in addition to her normal status the patient is a 5 year benefit from addition of chemotherapy would be in the range of 2-3%. She is going to discuss this with medical oncology. At this time is not felt that she needs further surgical intervention. She did have an appointment with Dr. Villavicencio and in director of pulmonary unit is in place. He wants to wait for replacement of the director of pulmonary unit until at least 6 months after completion of radiation therapy. Objective - Vital Signs Vital signs: Vital Signs Temp 98.4 F 03/03/21 09:38 Pulse 68 03/03/21 09:38 Resp 18 03/03/21 09:38 BP 139/88 03/03/21 09:38 Pulse Ox 98 03/03/21 09:38 Intake & Output 03/02/21 03/03/21 03/03/21 18:59 06:59 18:59 Weight 84.822 kg - Exam BMI 27.6 - Constitutional General appearance: Present: cooperative - EENT Eyes: Present: EOMI ENT: Present: hearing grossly normal - Neck Neck: Present: normal ROM - Respiratory Respiratory: bilateral: CTA - Cardiovascular Rhythm: regular Heart sounds: normal: S1, S2 - Integumentary Integumentary Comment(s): Incision clean and dry left breast and axilla Integumentary: Present: normal turgor - Musculoskeletal Musculoskeletal: Present: gait normal - Psychiatric Psychiatric: Present: A&O x's 3 Assessment and Plan Assessment: Impression: 1. Patient status post left breast mastectomy Node dissection 5 nodes removed 2 with isolated tumor cells and 1 with Piotr Bruno 2. Patient status post subpectoral implant placement and is following with Dr. Villavicencio Plan: 1. Follow up here in 3 months 2. I discussed the case in detail with Dr. Fortune from radiation oncology patient is going to have radiation of the left axilla and chest wall 3. Residency Program Coordinator to be removed and implant replaced approximately 6 months after completion of radiation therapy as per Dr. Villavicencio 4. Appointment with medical oncology/ Oncotype score 23 she will discuss this with medical oncology; also will need hormone therapy encounter 20 minutes, time spent with review of case with Dr. Fortune, and review of oncotype score with patient CC: Dr. Polly Roth
== END ==
LOC: WWCWWP 09:24
PROVIDERS: ATTEND Surgery
DX: Z08 Encounter for follow-up examination after completed treatment for malignant neoplasm (principal); F17.200 Nicotine dependence, unspecified, uncomplicated; Z85.3 Personal history of malignant neoplasm of breast; Z90.12 Acquired absence of left breast and nipple; Z98.82 Breast implant status

== ENCOUNTER 2021-05-29 12:55 | Emergency (ER) | payer BC ==
[2021-05-29 13:10] VITALS: TEMP 97.8
[2021-05-29 13:48] LABS: Basophils % (A) 1 %; Eosinophils # (A) 0.1 k/uL (0-0.7); Eosinophils % (A) 2 %; HCT 40.9 % (34.0-46.0); HGB 13.7 gm/dL (11.4-16.0); Lymphocytes # (A) 0.8 k/uL (1.0-4.8); Lymphocytes % (A) 18 %; MCH 30.4 pg (25.0-35.0); MCHC 33.4 g/dL (31.0-37.0); MCV 90.8 fL (80.0-100.0); Mean Platelet Volume 6.9; Monocytes # (A) 0.2 k/uL (0-1.0); Monocytes % (A) 5 %; Neutrophils # (A) 3.4 k/uL (1.3-7.7); Neutrophils % (A) 74 %; Platelet Count 272 k/uL (150-450); RBC 4.51 m/uL (3.80-5.40); RDW 14.5 % (11.5-15.5); WBC 4.6 k/uL (3.8-10.6)
[2021-05-29 14:00] LABS: INR 0.9 (<1.2); Partial Thromboplastin Time 23.5 sec (22.0-30.0); Prothrombin Time 9.9 sec (9.0-12.0)
[2021-05-29 14:01] LABS: ALT 13 U/L (4-34); African American GFR (CKD) >90 (>60 ml/min/1.73 sqM); Albumin 4.2 g/dL (3.5-5.0); Anion Gap 7 mmol/L; Blood Urea Nitrogen 14 mg/dL (7-17); Calcium 9.4 mg/dL (8.4-10.2); Carbon Dioxide 24 mmol/L (22-30); Chloride 107 mmol/L (98-107); Glucose 90 mg/dL (74-99); Magnesium 1.9 mg/dL (1.6-2.3); Non-African American GFR(CKD) >90 (>60 ml/min/1.73 sqM); Sodium 138 mmol/L (137-145); Total Bilirubin 0.6 mg/dL (0.2-1.3)
[2021-05-29 14:02] LABS: AST 32 U/L (14-36); Alkaline Phosphatase 82 U/L (38-126); Potassium 4.7 mmol/L (3.5-5.1)
--- NOTE | 2021-05-29 14:13 | XR ---
EXAMINATION TYPE: XR chest 2V DATE OF EXAM: 05/29/2021 COMPARISON: NONE HISTORY: Shortness of breath TECHNIQUE: Frontal and lateral views of the chest are obtained. FINDINGS: Scattered senescent parenchymal changes noted. Hyperinflation compatible with COPD. No evidence for infiltrate. No evidence for atelectasis. Heart size is stable. Mediastinal structures are stable and grossly unremarkable. No evidence for hilar prominence. Degenerative changes dorsal spine. IMPRESSION: 1. No evidence for acute pulmonary disease.
--- NOTE | 2021-05-29 18:24 | CT ---
EXAMINATION TYPE: CT brain wo con DATE OF EXAM: 05/29/2021 COMPARISON: None available HISTORY: c/o dizziness CT DLP: 1123.4 mGycm Automated exposure control for dose reduction was used. FINDINGS: There is no acute intracranial hemorrhage, mass effect, or midline shift identified. The ventricles and sulci are within normal limits in size. Ma-white differentiation is preserved. The globes are intact and the visualized sinuses are clear. 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 IMPRESSION: 1. No acute intracranial hemorrhage, mass effect, or midline shift is seen. 2. 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
--- NOTE | 2021-05-29 18:34 | ED ---
General Adult HPI - General Chief complaint: Arrhythmia/Palpitations Stated complaint: dizziness,heart racing Source: patient Mode of arrival: wheelchair Limitations: no limitations - History of Present Illness Initial comments: Patient is a 60-year-old female presents emergency department with report that she "just doesn't feel well". Patient has a history of breast cancer which was diagnosed in October. She recently finished 25 radiation treatments. Her surgeon is Dr. Raymundo Corbett. She states that she felt well throughout her whole treatment up until last Sunday. She began having some intermittent headaches and vertigo. She also gets intermittent sensation that her heart is racing. She denies any chest pain or shortness of breath. No abdominal pain. No changes in her bowel or bladder habits. No unilateral numbness or weakness. She hasn't had any fevers. No previous history of heart disease. No history of metastatic cancer. No other alleviating, precipitating or modifying factors - Related Data Home Medications Medication Instructions Recorded Confirmed PARoxetine [Paxil] 10 mg PO HS 10/05/14 05/29/21 Allergies Allergy/AdvReac Type Severity Reaction Status Date / Time No Known Allergies Allergy Verified 05/29/21 16:57 Review of Systems ROS Statement: Those systems with pertinent positive or pertinent negative responses have been documented in the HPI. ROS Other: All systems not noted in ROS Statement are negative. Past Medical History Past Medical History: Cancer, Osteoarthritis (OA) Additional Past Medical History / Comment(s): hx. right breast cancer 1997 with chemo & radiation; left breast cancer 12/2020; left breast lumpectomy 01/18/21; left breast mastectomy with tissue literature professor 02/08/21; History of Any Multi-Drug Resistant Organisms: None Reported Past Surgical History: Breast Surgery, Orthopedic Surgery, Tonsillectomy Additional Past Surgical History / Comment(s): right mastectomy & reconstruction 1997; foot surg; left breast lumpectomy w/SNB 01/18/21; left breast mastectomy with tissue literature professor 02/08/21; Past Anesthesia/Blood Transfusion Reactions: Previous Problems w/ Anesthesia, Postoperative Nausea & Vomiting (PONV) Past Psychological History: Anxiety Smoking Status: Current every day smoker Past Alcohol Use History: None Reported Past Drug Use History: None Reported - Past Family History Mother Family Medical History: Cancer Additional Family Medical History / Comment(s): Breast cancer General Exam Limitations: no limitations General appearance: alert, in no apparent distress Head exam: Present: atraumatic, normocephalic, normal inspection Eye exam: Present: normal appearance, PERRL, EOMI. Absent: scleral icterus, conjunctival injection, periorbital swelling ENT exam: Present: normal exam, mucous membranes moist Neck exam: Present: normal inspection. Absent: tenderness, meningismus, lymphadenopathy Respiratory exam: Present: normal lung sounds bilaterally. Absent: respiratory distress, wheezes, rales, rhonchi, stridor Cardiovascular Exam: Present: regular rate, normal rhythm, normal heart sounds. Absent: systolic murmur, diastolic murmur, rubs, gallop, clicks GI/Abdominal exam: Present: soft, normal bowel sounds. Absent: distended, tenderness, guarding, rebound, rigid Extremities exam: Present: normal inspection, full ROM, normal capillary refill. Absent: tenderness, pedal edema, joint swelling, calf tenderness Back exam: Present: normal inspection Neurological exam: Present: alert, oriented X3, CN II-XII intact Psychiatric exam: Present: normal affect, normal mood Skin exam: Present: warm, dry, intact, normal color. Absent: rash Course Vital Signs 05/29/21 05/29/21 05/29/21 13:05 17:17 18:55 Temperature 97.8 F 97.8 F 97.8 F Pulse Rate 64 67 71 Respiratory 18 17 18 Rate Blood Pressure 124/69 135/73 129/79 O2 Sat by Pulse 97 97 99 Oximetry EKG Findings - EKG Comments: EKG Findings:: EKG demonstrates normal sinus rhythm with a ventricular rate of 64. MN interval 140. QRS E4. QTC 394. No acute ST segment elevations or depressions concerning for ischemic changes Medical Decision Making - Medical Decision Making Upon arrival the patient is placed into room 3. A thorough history and physical exam is performed. Laboratory studies are conducted and the patient went for chest x-ray. 12-lead EKG was performed. The patient does make it back to a room after all of these studies have been completed. I reviewed them and discussed with the patient. Because of her symptoms I do recommend adding on a CT of her brain due to reported headaches, dizziness and history of breast cancer. Patient does agree to this. Laboratory studies are all within normal limits. 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 No acute cranial process. Chest x-ray demonstrates no evidence of acute cardial primary process. The results I discussed the patient. She states that she feels reassured at this time that her lab studies are normal and that she "just wanted to make sure that everything was alright". I do instruct that the patient follow up with her oncologist and primary care doctor in regards to her symptoms. She may need further testing. Return to the emergency room if should she have any new or worsening symptoms. Patient agreed to this, she was given written and verbal discharge instructions and discharged home in stable condition - Lab Data Result diagrams: 05/29/21 13:44 05/29/21 13:44 Lab Results 05/29/21 05/29/21 05/29/21 Range/Units 13:44 13:44 13:44 WBC 4.6 (3.8-10.6) k/uL RBC 4.51 (3.80-5.40) m/uL Hgb 13.7 (11.4-16.0) gm/dL Hct 40.9 (34.0-46.0) % MCV 90.8 (80.0-100.0) fL MCH 30.4 (25.0-35.0) pg MCHC 33.4 (31.0-37.0) g/dL RDW 14.5 (11.5-15.5) % Plt Count 272 (150-450) k/uL MPV 6.9 Neutrophils % 74 % Lymphocytes % 18 % Monocytes % 5 % Eosinophils % 2 % Basophils % 1 % Neutrophils # 3.4 (1.3-7.7) k/uL Lymphocytes # 0.8 L (1.0-4.8) k/uL Monocytes # 0.2 (0-1.0) k/uL Eosinophils # 0.1 (0-0.7) k/uL Basophils # 0.0 (0-0.2) k/uL PT 9.9 (9.0-12.0) sec INR 0.9 (<1.2) APTT 23.5 (22.0-30.0) sec Sodium 138 (137-145) mmol/L Potassium 4.7 (3.5-5.1) mmol/L Chloride 107 (98-107) mmol/L Carbon Dioxide 24 (22-30) mmol/L Anion Gap 7 mmol/L BUN 14 (7-17) mg/dL Creatinine 0.68 (0.52-1.04) mg/dL Est GFR (CKD-EPI)AfAm >90 (>60 ml/min/1.73 sqM) Est GFR (CKD-EPI)NonAf >90 (>60 ml/min/1.73 sqM) Glucose 90 (74-99) mg/dL Calcium 9.4 (8.4-10.2) mg/dL Magnesium 1.9 (1.6-2.3) mg/dL Total Bilirubin 0.6 (0.2-1.3) mg/dL AST 32 (14-36) U/L ALT 13 (4-34) U/L Alkaline Phosphatase 82 (38-126) U/L Troponin I (0.000-0.034) ng/mL Total Protein 7.0 (6.3-8.2) g/dL Albumin 4.2 (3.5-5.0) g/dL 05/29/21 Range/Units 13:44 WBC (3.8-10.6) k/uL RBC (3.80-5.40) m/uL Hgb (11.4-16.0) gm/dL Hct (34.0-46.0) % MCV (80.0-100.0) fL MCH (25.0-35.0) pg MCHC (31.0-37.0) g/dL RDW (11.5-15.5) % Plt Count (150-450) k/uL MPV Neutrophils % % Lymphocytes % % Monocytes % % Eosinophils % % Basophils % % Neutrophils # (1.3-7.7) k/uL Lymphocytes # (1.0-4.8) k/uL Monocytes # (0-1.0) k/uL Eosinophils # (0-0.7) k/uL Basophils # (0-0.2) k/uL PT (9.0-12.0) sec INR (<1.2) APTT (22.0-30.0) sec Sodium (137-145) mmol/L Potassium (3.5-5.1) mmol/L Chloride (98-107) mmol/L Carbon Dioxide (22-30) mmol/L Anion Gap mmol/L BUN (7-17) mg/dL Creatinine (0.52-1.04) mg/dL Est GFR (CKD-EPI)AfAm (>60 ml/min/1.73 sqM) Est GFR (CKD-EPI)NonAf (>60 ml/min/1.73 sqM) Glucose (74-99) mg/dL Calcium (8.4-10.2) mg/dL Magnesium (1.6-2.3) mg/dL Total Bilirubin (0.2-1.3) mg/dL AST (14-36) U/L ALT (4-34) U/L Alkaline Phosphatase (38-126) U/L Troponin I <0.012 (0.000-0.034) ng/mL Total Protein (6.3-8.2) g/dL Albumin (3.5-5.0) g/dL Disposition Clinical Impression: Generalized weakness, S/P radiation 4-12 weeks ago, Breast cancer, Vertigo Disposition: HOME SELF-CARE Condition: Stable Instructions (If sedation given, give patient instructions): Dizziness (ED) Additional Instructions: Please follow-up with your primary care doctor or oncologist in regards to your symptoms. Return to the emergency room for any new or worsening symptoms Is patient prescribed a controlled substance at d/c from ED?: No Referrals: Michelle Roth MD [Primary Care Provider] - 1-2 days Time of Disposition: 18:34
[2021-05-29 18:56] VITALS: BP 129/79; PULSE 71; RESP 18
== END 2021-05-29 18:56 | disposition home or self-care (01) ==
LOC: EC 12:55
DX: C50.911 Malignant neoplasm of unspecified site of right female breast (principal); R53.1 Weakness; R42 Dizziness and giddiness; R00.2 Palpitations; R51.9 Headache, unspecified; F17.200 Nicotine dependence, unspecified, uncomplicated; Z92.3 Personal history of irradiation; Z90.12 Acquired absence of left breast and nipple
CPT/HCPCS: 36415; 70450; 71046; 80053; 83735; 84484; 85025; 85610; 85730; 93005; 99285

== ENCOUNTER → 2021-06-28 | Outpatient (CLI) | payer BC ==
--- NOTE | 2021-06-29 21:07 | BD ---
EXAMINATION TYPE: Axial Bone Density DATE OF EXAM: 06/28/2021 COMPARISON: NONE CLINICAL HISTORY: Postmenopausal screening Height: 5 FT 7 IN Weight: 183 FRAX RISK QUESTIONS: Alcohol (3 or more units per day): NO Family History (Parent hip fracture): NO Glucocorticoids (More than 3mos): NO (Ex: prednisone, prednisolone, methylprednisolone, dexamethasone, and hydrocortisone). History of Fracture in Adulthood: NO Secondary Osteoporosis: NO 1. Type 1 Diabetes: NO 2. Hyperthyroidism: NO 3. Menopause before 45: NO 4. Malnutrition: NO 5. Chronic liver disease: NO Rheumatoid Arthritis: NO Current Tobacco Use: YES RISK FACTORS HISTORY OF: Surgery to Spine/Hip(right/left)/Wrist (right/left): NO Family History of Osteoporosis: NO Active: YES Diet low in dairy products/other sources of calcium: NO Postmenopausal woman: AGE 49 Take estrogen and/or progesterone medications: NO Lost more than 2 inches in height since high school: YES MEDICATIONS: Additional Medications: PAXIL, Additional History: BREAST CANCER 2020 RADIATION EXAM MEASUREMENTS: Bone mineral densitometry was performed using the [employer] System. Bone mineral density as measured about the Lumbar spine is: ----- L1-L4(G/cm2): 1.183 T Score Values are as follows: ----- L2: 1.1 ----- L3: -1.0 ----- L4: -1.7 ----- L1-L4: 0.0 BASELINE Bone mineral density about the R hip (g/cm2): 0.830 Bone mineral density about the L hip (g/cm2): 0.858 T Score values are as follows: -----R Neck: -1.5 -----L Neck: -1.3 -----R Total: -1.9 -----L Total: -1.8 BASELINE IMPRESSION: Osteopenia (T Score between -2.5 and -1). There is slightly increased risk of fracture and the patient may be considered for treatment. Re-Screen 2-5 years. NOTE: T-SCORE=SD OF THE YOUNG ADULT MEAN.
== END | disposition home or self-care (01) ==
LOC: RADBDWWP 16:21
PROVIDERS: ATTEND Internal Medicine Hematology & Oncology
DX: C50.112 Malignant neoplasm of central portion of left female breast (principal); Z79.890 Hormone replacement therapy
CPT/HCPCS: 77080

== ENCOUNTER 2021-10-25 08:56 | Day surgery (SDC) | payer BC ==
[2021-10-18 11:37] VITALS: BMI 26.6
[~2021-10-25 08:56] MED LIST changes: -HEPARIN SODIUM,PORCINE/PF 5,000 UNIT/0.5 ML SYRINGE SQ PRN; +LIDOCAINE 1% (10MG/ML) FOR IV START INTRADERMA PRN; -SCOPOLAMINE 1.5MG/72HR PATCH TRANSDERM ONE
[2021-10-25 09:30] VITALS: RESP 16
[2021-10-25] MEDS ORDERED: LACTATED RINGERS 1,000 ML IV ONE ×2 (09:45→12:20)
[2021-10-25] MEDS ORDERED: SCOPOLAMINE 1.5MG/72HR PATCH TRANSDERM ONE (10:00)
[2021-10-25 10:22] LABS: Basophils % (A) 0 %; Eosinophils # (A) 0.1 k/uL (0-0.7); Eosinophils % (A) 3 %; HCT 37.6 % (34.0-46.0); HGB 12.5 gm/dL (11.4-16.0); Lymphocytes # (A) 0.9 k/uL (1.0-4.8); Lymphocytes % (A) 19 %; MCH 30.4 pg (25.0-35.0); MCHC 33.3 g/dL (31.0-37.0); MCV 91.5 fL (80.0-100.0); Mean Platelet Volume 7.3; Monocytes # (A) 0.3 k/uL (0-1.0); Monocytes % (A) 7 %; Neutrophils # (A) 3.2 k/uL (1.3-7.7); Neutrophils % (A) 70 %; Platelet Count 271 k/uL (150-450); RBC 4.11 m/uL (3.80-5.40); RDW 12.9 % (11.5-15.5); WBC 4.6 k/uL (3.8-10.6)
[2021-10-25] MEDS ORDERED: fentaNYL (PF) 50 MCG/ML 2 ML AMP ONE (11:13)
[2021-10-25] MEDS ORDERED: ROCURONIUM 10 MG/ML (5 ML VIAL) IV ONE (11:13)
[2021-10-25] MEDS ORDERED: SUCCINYLCHOLINE CHLORIDE 100 MG/5 ML SYR IV ONE (11:13)
[2021-10-25] MEDS ORDERED: LIDOCAINE 1% INJ 10MG/ML (20 ML MDV) ONE (11:13)
[2021-10-25] MEDS ORDERED: PROPOFOL 10 MG/ML 20 ML VIAL IV ONE (11:13)
[2021-10-25] MEDS ORDERED: GLYCOPYRROLATE 0.2 MG/ML 2 ML VIAL ONE (11:13)
[2021-10-25] MEDS ORDERED: MIDAZOLAM 2 MG/2 ML VIAL ONE (11:13)
[2021-10-25] MEDS ORDERED: NEOSTIGMINE 1 MG/ML 10 ML VIAL ONE (11:13)
[2021-10-25 12:39] VITALS: TEMP 97.7
[2021-10-25] MEDS: HYDROmorphone 0.5 MG/0.5 ML SYRINGE IVP PRN ×4 (12:50→13:30)
[2021-10-25] MEDS ORDERED: KETOROLAC 15 MG/ML 1 ML VIAL IVP ONE (13:35)
[2021-10-25] MEDS ORDERED: ONDANSETRON 4 MG/2 ML VIAL IVP ONE (13:35)
[2021-10-25 14:28] VITALS: BP 149/74; PULSE 51
[2021-10-25] MEDS ORDERED: HYDROcodone/APAP 7.5-325MG 1 EACH TAB PO ONE (14:34)
[2021-10-25] MEDS ORDERED: HYDROcodone/APAP 7.5-325MG 1 EACH TAB ONE (14:37)
--- NOTE | 2021-10-25 20:57 | OP ---
OPERATIVE REPORT DATE OF SURGERY: 10/25/2021. SURGEON: Dr. Chase Underwood. PREOPERATIVE DIAGNOSES: 1. Acquired absence of left breast. 2. Personal history of left breast cancer. 3. Acquired deformity, left reconstructed breast. 4. Acquired loss left breast inframammary fold. POSTOPERATIVE DIAGNOSES: 1. Acquired loss of left breast. 2. Personal history of breast cancer left breast. 3. Acquired deformity, left reconstructed breast. 4. Acquired loss left breast inframammary fold. OPERATIVE PROCEDURES: 1. Replace left breast tissue harness builder with silicone breast implant for left breast reconstruction. 2. Revision of left reconstructed breast. 3. Reconstruction of left breast inframammary fold via local advancement flap, 44 square cm. 4. Implantation of reconstructive graft for left breast reconstruction. OPERATIVE INDICATIONS: The patient is a 61-year-old female who underwent left mastectomy for breast cancer with immediate reconstruction via tissue harness builder technique. The patient had undergone right mastectomy in the past in 1997 for breast cancer and underwent TRAM flap reconstruction at that time. At the time of her left mastectomy she desired reconstruction and underwent tissue harness builder placement. She has completed subsequent outpatient expansion and is ready to proceed with next stage of reconstruction for left breast with placement of a silicone implant, reconstruction of breast due to multiple contour irregularities from the mastectomy and expansion process as well as reconstruction of left inframammary fold that has been effaced. She understands the potential risks and complications related to the surgery, including but not limited to hematoma, seroma, wound healing problems, postoperative infection, among others. She has requested I perform today's surgery. OPERATIVE PROCEDURE SUMMARY: The patient is seen in the preoperative area, markings made, procedure reviewed, all questions answered. She was then transported to the operating room, where she was placed in supine position. Upon induction of general endotracheal anesthesia, the patient was prepped and draped in the usual fashion. The incision drawn preoperatively was located over the central mound of the reconstructed breast in transverse fashion. Incision was made following diagram placed using a 10 blade scalpel, dividing the skin in full-thickness fashion and followed by cauterization to divide subcutaneous tissue, identifying the underlying muscle flap layer. Skin and subcutaneous tissue flaps were then elevated off the muscle flap layer with extensive dissection with cauterization of the contour irregularities as mentioned previously. With this completed, incision was then made through the muscle flap layer, exposing the harness builder. The incision was made offset from the skin incision. The harness builder was exposed and removed intact. The expansion cavity appeared normal, with some clear fluid; no granulation tissue and no exudates. The cavity was irrigated. A complete capsulotomy incision was made where the capsule joined the chest wall with multiple cruciate incisions through the capsular structure. Areas that were tight involved the medial and medial inferior aspect of the reconstructed cavity, additional scar tissue and muscle was released here with cauterization revising this area to create a bigger space for the implant to sit. Through the inferior capsulotomy incision, the skin and subcutaneous tissue flap was elevated, measuring 22 x 2 square cm. The flap was elevated with cauterization and the skin and subcutaneous tissue flap advanced in cephalad fashion and secured to rib periosteal tissue in discrete locations using interrupted 2-0 and 0 Vicryl sutures. Additional revision was required laterally to strengthen and buttress the lateral aspect with internal capsular sutures placed in interrupted and short running fashion with 0 Vicryl. The cavity was re-irrigated. Hemostasis was excellent. Temporary breast implant sizer was opened on the field. A 580 mL breast implant sizer appeared optimal with the patient in seated-up position. It was clearly not possible to close the muscle flap over the sizer without creasing the device. Therefore SurgiMend was opened on the field at this point measuring 10 x 15 cm. The SurgiMend was revitalized with room-temperature saline. Temporary breast implant sizer was removed and the cavity irrigated. Hemostasis was excellent. Gloves were now changed and the breast implant opened on the field, again from the [facility] breast implant line, reference number [id number], serial number [id number]. The device was only handled by the surgeon, irrigated with saline and inserted in the reconstructive cavity created through a Downs Funnel. The implant positioning was assured under direct vision. The SurgiMend was now placed over the implant deep to the muscle flap tissue and spanning the gap where the muscle could not be closed without significant tension or creasing of the implant. The SurgiMend was inset to the muscle flap tissue using interrupted 3-0 Vicryl sutures. Complete coverage of the harness builder was obtained. The skin incision was now closed, approximating deep dermis using inverted interrupted 4-0 Monocryl and completing the superficial dermal epidermal closure with running 5-0 Prolene. Surgical field was cleansed with saline, dried and covered with a postoperative bandage using Kerlix squares, secured with 3M Medipore tape and in position with size 4 mammary support with additional ABD padding to the lateral aspect. The patient was awakened from her anesthetic, extubated and transferred to the recovery room in good condition with stable vital signs. Estimated blood loss was 25 mL. There were no complications. MMDONNIE / IJN: [id number] /
== END 2021-10-25 15:34 | disposition home or self-care (01) ==
LOC: OR 08:56
PROVIDERS: ATTEND Plastic Surgery
DX: Z85.3 Personal history of malignant neoplasm of breast (principal); Z90.12 Acquired absence of left breast and nipple; N65.0 Deformity of reconstructed breast; Z98.890 Other specified postprocedural states
CPT/HCPCS: 85025; 11970; 19380; 14001; 15777; C1789; C1763; J2250; J1100; J2710; J0690; J2405; J2001; J3010; J1885; J0330; J2704; J1170